=== PATIENT | male | born 1945 | race Caucasian/White ===

== ENCOUNTER 2018-08-15 08:39 | Day surgery (SDC) | payer MEDICARE, OTHER ==
--- NOTE | 2018-08-15 08:07 | HP ---
DATE OF SURGERY: 08/15/2018 HISTORY OF PRESENT ILLNESS: The patient is a 73 year-old who originally had some swelling, occasional bleeding of enlarged external hemorrhoids initially at the time. Last colonoscopy was eight or nine years ago. He had some bleeding. As he had improved he continued observation and wants re-evaluated. His external hemorrhoids are better. He is interested in considering internal hemorrhoid banding if indicated as well as colonoscopy at this time. PAST MEDICAL HISTORY: Renal disease, hypertension. PAST SURGICAL HISTORY: Cholecystectomy, PV catheter later removed. MEDICATIONS: He had been on Allopurinol for some gout, amiloride, amlodipine, atorvastatin, ergocalciferol, vitamin D2, Fenofibrate, fluconazole nasal spray, furosemide, hydrocortisone, Pramoxine cream, Klor-Con, metoprolol, multivitamins. ALLERGIES: PENICILLIN, SULFA. FAMILY HISTORY: Hypertension, heart disease. SOCIAL HISTORY: No smoking or alcohol abuse. REVIEW OF SYSTEMS: Twelve systems reviewed. No chest pain or palpitations other systems negative or noncontributory as above and per preadmission questionnaire. PHYSICAL EXAMINATION: GENERAL: No acute distress. HEENT: Sclerae nonicteric. NECK: No JVD. CHEST: Equal excursion, nonlabored breathing. CVS: Regular rate and rhythm. ABDOMEN: Soft. No peritoneal signs. EXTREMITIES: No significant edema. NEURO: Alert, oriented, moving extremities symmetrically. No gross motor deficits noted. RECTAL: His external hemorrhoids are improved. IMPRESSION: History of some rectal bleeding, history of some internal and external hemorrhoid flare. I feel he will benefit from colonoscopy for further evaluation, possible internal hemorrhoid banding depending on operative findings. Risks and benefits explained in detail including but not limited to bleeding or infection, risk of bowel injury or perforation possibly requiring open procedure, risk of missed or nondiagnosis or incomplete exam possibly requiring barium enema, other studies or procedures, general risk of bowel prep or sedation, postoperative risk of nausea or cramping but not limited to. Regarding the hemorrhoid if his internal hemorrhoids are prominent to warrant banding at the time. General risk of bleeding, infection, remote risk of deeper infection possibly requiring major procedure, possibility of progression of hemorrhoidal disease may require other therapies or treatments down the road. He understands and agrees to the planned procedure and will proceed with colonoscopy possible internal hemorrhoid banding as an outpatient.
[2018-08-15] MEDS ORDERED: DIPRIVAN 200 MG/20 ML IV ONE (08:40)
[2018-08-15] MEDS ORDERED: Ketamine HCl 50 MG/ML IJ ONE (08:40)
[2018-08-15] MEDS ORDERED: Lactated Ringers 1,000 ML IV ONE (08:52)
[2018-08-15] MEDS ORDERED: Lactated Ringers 1,000 ML IV SCH (09:00)
[2018-08-15] MEDS ORDERED: ULTRAM 50 MG PO ONE (11:18)
[2018-08-15 12:12] VITALS: BP 140/78; PULSE 57; O2SAT 97
--- NOTE | 2018-08-15 15:01 | OP ---
SURGERY DATE/TIME: 08/15/2018 1019 PREOPERATIVE DIAGNOSIS: Rectal bleeding. History of internal and external hemorrhoids. POSTOPERATIVE DIAGNOSES: 1) Proximal transverse colon polyp. 2) Small raised lesion versus inflammation area descending colon. 3) Diverticulosis. 4) Grade II to III internal and external hemorrhoids. 5) Fair bowel prep. PROCEDURES: 1) Colonoscopy to terminal ileum. 2) Retrograde ileoscopy. 3) Hot snare polypectomy 4 mm transverse colon polyp. 4) Hot biopsy removal of small raised lesion inflamed area descending colon. 5) Internal hemorrhoid banding x3 columns. SURGEON: Dr. Nba Young. ANESTHESIA: MAC. ESTIMATED BLOOD LOSS: Minimal. INDICATIONS: As noted above. Risks and benefits explained in detail but not limited to and consent obtained. DESCRIPTION OF PROCEDURE AND FINDINGS: The patient is taken to the operating room. MAC anesthesia induced. After official time out and no disagreement with planned procedure, digital rectal exam revealed internal and external hemorrhoids. Otherwise no large palpable masses. Video colonoscope inserted and passed up through the tortuous sigmoid, descending, ascending and transverse colon around to the cecum. The scope was able to be passed to terminal ileum. Retrograde ileoscopy performed and grossly unremarkable. The scope is slowly and carefully withdrawn. Prep overall fair. There was a little bit of liquidy stool that was suctioned clear. There was a 4 mm polyp in the proximal transverse colon hepatic flexure that was removed with hot snare polypectomy with brief bursts of cautery. Good hemostasis noted. Otherwise the scope was slowly and carefully withdrawn. He did have a few scattered diverticula throughout the colon. In the descending colon at about 45 to 50 cm was noted a small raised lesion versus hyperplastic lesion as well as another similar sized 2.5 mm little inflamed area whether just simple prep irritation or not, both of these areas removed with hot biopsy forceps with brief bursts of cautery keeping well away from the bowel wall. Good hemostasis noted. The scope was slowly and carefully withdrawn. Again, the scope slowly and carefully withdrawn. Again, he did have some mild diverticulosis. Pulled back into the rectum where there were internal and external hemorrhoids. The scope is withdrawn. Remaining in lateral position under MAC anesthesia. Half-lee retractor carefully inserted while he remained under sedation. It was felt that his grade II to III internal and external hemorrhoids warranted internal hemorrhoid banding. Starting first the left lateral. The top edge of the internal hemorrhoid suction band with good tuft of tissue was noted. This is again repeated in the right posterior position and then again a third column was banded in the right anterior position with good tuft of tissue in each location. The retractor removed. Good hemostasis noted. The patient tolerated the procedure well. There were no immediate complications. Findings discussed with the family out in the waiting area.
== END 2018-08-15 12:31 | disposition home or self-care (01) ==
LOC: SDC 08:39
PROVIDERS: ATTEND Surgery
DX: D12.3 Benign neoplasm of transverse colon (principal); K63.9 Disease of intestine, unspecified; K57.30 Diverticulosis of large intestine without perforation or abscess without bleeding; K64.1 Second degree hemorrhoids; K64.4 Residual hemorrhoidal skin tags
CPT/HCPCS: 88305; 99100; J2704; A9270-GY

== ENCOUNTER 2021-02-23 10:36 | Emergency (ER) | payer MEDICARE, OTHER ==
[2021-02-23 11:04] VITALS: BP 156/88; PULSE 63; O2SAT 100
--- NOTE | 2021-02-23 11:11 | ERPHSYRPT ---
- History of Present Illness Time Seen by Provider: 02/23/21 11:00 Source: patient Exam Limitations: no limitations Physician History: Tee is a 75-year-old male who started 5 days ago with pain in the left upper chest radiating around to the back very painful but no rash was present. Then the rash appeared on Wednesday. His diagnosed him with shingles she is correct Timing/Duration: day(s) (5) Quality: burning, painful Severity: moderate Location: torso Possible Causes: other (Mild had chickenpox) Associated Symptoms: blisters, rash Allergies/Adverse Reactions: Penicillins Allergy (Mild, Verified 08/15/18 09:00) Hives Sulfa (Sulfonamide Antibiotics) [Sulfa(Sulfonamide Antibiotics)] Allergy (Mild, Verified 08/15/18 09:00) Hives Home Medications: Amiloride/Hydrochlorothiazide [Amiloride HCl-Hctz 5-50 mg Tab] 1 each PO DAILY 01/30/12 [History] Metoprolol Tartrate [Lopressor] 100 mg PO DAILY 01/30/12 [History] Multivitamin [Multivitamins] 1 ea PO DAILY 01/30/12 [History] Potassium Chloride 20 Meq [Klor-Con 20 MEQ] 20 meq PO QID 01/30/12 [History] Allopurinol 300 mg [Zyloprim 300 mg] 300 mg PO DAILY 01/14/13 [History] Amlodipine Besylate [Norvasc] 2.5 mg PO DAILY 01/14/13 [History] Furosemide 40 mg [Lasix 40 MG] 40 mg PO BID 01/14/13 [History] Ergocalciferol (Vitamin D2) [Vitamin D2] 50,000 unit PO DAILY 01/16/13 [History] Fenofibrate 54 mg PO DAILY 08/09/18 [History] Hx Influenza Vaccination/Date Given: (2011) Hx Pneumococcal Vaccination/Date Given: Yes (within last 5years) - Review of Systems Constitutional: No Fever, No Chills Eyes: No Symptoms Ears, Nose, & Throat: No Symptoms Respiratory: No Cough, No Dyspnea Cardiac: No Chest Pain, No Edema, No Syncope Abdominal/Gastrointestinal: No Abdominal Pain, No Nausea, No Vomiting, No Diarrhea Genitourinary Symptoms: No Dysuria Musculoskeletal: No Back Pain, No Neck Pain Skin: Rash Neurological: No Dizziness, No Focal Weakness, No Sensory Changes Psychological: No Symptoms Endocrine: No Symptoms All Other Systems: Reviewed and Negative - Past Medical History Pertinent Past Medical History: Yes Neurological History: No Pertinent History ENT History: No Pertinent History Cardiac History: High Cholesterol, Hypertension Respiratory History: Sleep Apnea Endocrine Medical History: Hypothyroidism Musculoskeletal History: Arthritis GI Medical History: No Pertinent History, Gallbladder Disease History: Renal Disease Psycho-Social History: No Pertinent History Male Reproductive Disorders: No Pertinent History Other Medical History: on transplant list for kidney, [place] [address] - Past Surgical History Past Surgical History: Yes Neuro Surgical History: No Pertinent History Cardiac: Cardiac Catheterization Respiratory: No Pertinent History Gastrointestinal: Cholecystectomy Genitourinary: Other Musculoskeletal: No Pertinent History Male Surgical History: No Pertinent History Other Surgical History: peritoneal dialysis catheter - Social History Smoking Status: Never smoker Exposure to second hand smoke: No Drug Use: none Patient Lives Alone: No - Physical Exam General Appearance: mild distress, alert Eye Exam: PERRL/EOMI, eyes nml inspection Ears, Nose, Throat Exam: normal ENT inspection, pharynx normal, moist mucous membranes Neck Exam: normal inspection, non-tender, supple, full range of motion Respiratory Exam: normal breath sounds, lungs clear, No respiratory distress Cardiovascular Exam: regular rate/rhythm, normal heart sounds Gastrointestinal/Abdomen Exam: soft, mass, No tenderness Back Exam: normal inspection, normal range of motion, No CVA tenderness, No vertebral tenderness Extremity Exam: normal inspection, normal range of motion Neurologic Exam: alert, oriented x 3, cooperative, normal mood/affect, sensation nml, No motor deficits Skin Exam: normal color, warm, dry, rash (Vesicular rash on the left side of the upper chest radiating under the axilla and onto the upper back.) SpO2 Interpretation: normal O2 Delivery: Room Air - Course Nursing assessment & vital signs reviewed: Yes - Progress Progress: unchanged - Departure Departure Disposition: Home Clinical Impression: Herpes zoster Condition: Stable Critical Care Time: No Referrals: KELLIE ROTHMAN MD [Primary Care Provider] - Instructions: Shingles (DC) Prescriptions: Hydrocodone/Acetaminophen [Hydrocodone-Acetamin 5-325 mg] 1 tab PO Q6HPRN PRN 3 Days #12 tablet MDD 4 PRN Reason: Pain Prednisone 10 mg [Deltasone 10 mg] 10 mg PO TID 4 Days #12 tablet Valacyclovir HCl [Valtrex] 1,000 mg PO TID 7 Days #21 tablet
== END 2021-02-23 11:31 | disposition home or self-care (01) ==
LOC: ED 10:36
DX: B02.9 Zoster without complications (principal); Z79.899 Other long term (current) drug therapy; I10 Essential (primary) hypertension; E78.00 Pure hypercholesterolemia, unspecified; E03.9 Hypothyroidism, unspecified; G47.30 Sleep apnea, unspecified
CPT/HCPCS: 99282

== ENCOUNTER 2021-12-15 08:35 | Day surgery (SDC) | payer MEDICARE, OTHER ==
[2021-12-15] MEDS ORDERED: Lactated Ringers 1,000 ML IV ONE (08:43)
[2021-12-15] MEDS ORDERED: Lactated Ringers 1,000 ML IV SCH (09:00)
--- NOTE | 2021-12-15 09:10 | HP ---
DATE OF SURGERY: 12/15/2021 HISTORY OF PRESENT ILLNESS: The patient is a 76-year-old last colonoscopy three years ago and had some polyps. The patient is working on trying to get back on the kidney transplant list. He had some prostate cancer early stages, he said. He denies any bloody stools. No change in bowel movements. No pain. Given his history of polyps, he is in need of follow up screening colonoscopy. PAST MEDICAL HISTORY: Prostate cancer, hypertension. PAST SURGICAL HISTORY: Cholecystectomy in the past. Cardiac catheterization in the past. Peritoneal dialysis catheter in the past. MEDICATIONS: Multivitamin, Tricor, metoprolol, amiloride/hydrochlorothiazide, furosemide, vitamin D, allopurinol, potassium chloride. ALLERGIES: PENICILLN. SULFA. FAMILY HISTORY: Heart disease. SOCIAL HISTORY: He denies smoking or alcohol abuse. REVIEW OF SYSTEMS: Fourteen systems reviewed. No chest pain or palpitations. Other systems negative or noncontributory as above and per preadmission questionnaire. PHYSICAL EXAMINATION: GENERAL: No acute distress. HEENT: Sclerae nonicteric. NECK: No JVD. CHEST: Equal excursion, nonlabored breathing. CVS: Regular rate and rhythm. ABDOMEN: Soft. No peritoneal signs. EXTREMITIES: No significant edema. NEURO: Alert, oriented, moving extremities symmetrically. RECTAL: Deferred timed to endoscopy exam. PSYCH: Appropriate mood and affect. SKIN: Dry. IMPRESSION: History of polyps in need of follow up screening colonoscopy, I feel he is a candidate. He was shown the risk sheet, explained the procedure in detail including but not limited to bleeding or infection, risk of bowel injury or perforation possibly requiring open procedure, risk of missed or nondiagnosis or incomplete exam possibly requiring barium enema, other studies or procedures, general risk of anesthesia or sedation but not limited to, consent obtained. Will proceed with outpatient colonoscopy under MAC anesthesia.
[2021-12-15] MEDS ORDERED: DIPRIVAN 200 MG/20 ML IV ONE (10:33)
[2021-12-15 11:26] VITALS: BP 125/68; PULSE 55; O2SAT 97
--- NOTE | 2021-12-15 14:50 | OP ---
SURGERY DATE/TIME: 12/15/2021 1044 PREOPERATIVE DIAGNOSIS: Prior history of polyp, need follow up screening colonoscopy. POSTOPERATIVE DIAGNOSES: 1) ASA Class III. 2) Fair bowel prep. 3) Diverticulosis. 4) Small polyps ascending colon and sigmoid colon. PROCEDURES: 1) Colonoscopy to cecum. 2) Hot snare polypectomy ascending colon polyps x2. SURGEON: Dr. Nba Young. ANESTHESIA: MAC. ESTIMATED BLOOD LOSS: Minimal. INDICATIONS: As noted above. Risks and benefits explained in detail but not limited to and consent obtained. DESCRIPTION OF PROCEDURE AND FINDINGS: The patient is taken to the endoscopy room. MAC anesthesia induced. After official time out and no disagreement with planned procedure, digital rectal exam did not reveal any rectal masses. Video colonoscope inserted and passed up through the slightly tortuous sigmoid, descending, transverse and ascending colon. With the external pressure the scope was able to be passed to the cecum. Appendiceal orifice and valve well visualized and photo documented. Prep overall was fair. ASA Class III. After hot snare polypectomy of ascending colon polyp, the scope was slowly and carefully withdrawn. There were a few scattered diverticula. The scope passed around to the sigmoid colon. Two small early polyps versus hyperplastic lesions removed with hot biopsy forceps with brief bursts of cautery. Good hemostasis was noted. Withdrawal time was around 11 minutes. No signs of any large masses or obstructing lesions. He did have a fair bowel prep. He had some mild diverticulosis. The scope is withdrawn. There were no immediate complications. Findings discussed with the family out in the waiting area.
== END 2021-12-15 11:33 | disposition home or self-care (01) ==
LOC: SDC 08:35
PROVIDERS: ATTEND Surgery
DX: Z12.11 Encounter for screening for malignant neoplasm of colon (principal); Z09 Encounter for follow-up examination after completed treatment for conditions other than malignant neoplasm; D12.2 Benign neoplasm of ascending colon; D12.4 Benign neoplasm of descending colon; Z86.010 Personal history of colon polyps; K57.30 Diverticulosis of large intestine without perforation or abscess without bleeding
CPT/HCPCS: 99100; J2704

== ENCOUNTER 2025-04-12 15:42 | Emergency (ER) | payer MEDICARE, OTHER ==
[2025-04-12 15:48] VITALS: TEMP 98.9
--- NOTE | 2025-04-12 16:04 | ERPHSYRPT ---
- History of Present Illness Time Seen by Provider: 04/12/25 16:04 Source: patient, family Exam Limitations: no limitations Physician History: This is a 80-year-old white male patient who arrives by private vehicle accompanied by his spouse with approximately 1-1/2 weeks of worsening shortness of breath. His primary care provider is Dr. Arenas. His shank threader is Dr. Gibson and his warehousing technician is Dr. Mueller. Patient states that his shortness of breath has been worsening primarily in the mornings over the last 1-1/2 weeks. Throughout the day his symptoms improved but do not completely go away. He has noticed some associated "rattling" in his chest when he breathes. During this timeframe, he and his also have noticed increased swelling in his lower extremities he denies chest pain. He has had a mild cough. Within the last 2 weeks his has had bronchitis and she felt that this might be bronchitis. However symptoms were worsening. Patient and his spouse were on their way out of town and they stopped off at urgent care clinic in [facility] where he was found to have a systolic blood pressure of 220 mmHg and a room air oxygen saturation level 93%. He does not wear oxygen supplementation. Patient has history of CHF and is on Lasix, hypertension and does take metoprolol and hydralazine, hyperlipidemia, sleep apnea, arthritis and chronic renal disease without dialysis. In the emergency department here at [facility] we placed the patient on 2 L of oxygen via nasal cannula and his oxygen saturation level increased to 85% to 97%. He is in no apparent distress. Patient is not on nebulizer treatments at home Timing/Duration: week(s) (1.5) Severity of Dyspnea-Max: mild (To moderate) Severity of Dyspnea-Current: mild (To moderate) Possible Cause: frequent episodes Modifying Factors: Improves With: activity (Worsens), coughing (Mild) Associated Symptoms: cough, ankle swelling, No chest pain/discomfort Allergies/Adverse Reactions: Penicillins Allergy (Mild, Verified 12/15/21 08:50) Hives Sulfa (Sulfonamide Antibiotics) [Sulfa(Sulfonamide Antibiotics)] Allergy (Mild, Verified 12/15/21 08:50) Hives Home Medications: Metoprolol Tartrate [Lopressor] 100 mg PO BID 01/30/12 [History] Multivitamin [Multivitamins] 1 ea PO DAILY 01/30/12 [History] Potassium Chloride 20 Meq [Klor-Con 20 MEQ] 20 meq PO TID 01/30/12 [History] Allopurinol 300 mg [Zyloprim 300 mg] 300 mg PO DAILY 01/14/13 [History] Furosemide 40 mg [Lasix 40 MG] 20 mg PO BID 01/14/13 [History] Ergocalciferol (Vitamin D2) [Vitamin D2] 50,000 unit PO CLARIFY 01/16/13 [History] Fenofibrate 54 mg PO DAILY 08/09/18 [History] Atorvastatin Calcium [Lipitor 40Mg] 2 tab PO DAILY 12/15/21 [History] Hydralazine HCl 25 mg PO DAILY 04/12/25 [History] Hx Tetanus, Diphtheria Vaccination/Date Given: Yes Hx Influenza Vaccination/Date Given: (2011) Hx Pneumococcal Vaccination/Date Given: Yes (within last 5years) Travel Risk - International Travel Have you traveled outside of the country in past 3 weeks: No - Emerging Infectious Disease Are you exhibiting symptoms associated with any current EIDs: No - Review of Systems Constitutional: No Symptoms Eyes: No Symptoms Ears, Nose, & Throat: No Symptoms Respiratory: Cough, Dyspnea Cardiac: Edema (Bilateral feet and ankles), No Chest Pain Abdominal/Gastrointestinal: No Symptoms Genitourinary Symptoms: No Symptoms Musculoskeletal: No Symptoms Skin: No Symptoms Neurological: No Symptoms Psychological: No Symptoms Endocrine: No Symptoms Hematologic/Lymphatic: No Symptoms Immunological/Allergic: No Symptoms All Other Systems: Reviewed and Negative - Past Medical History Pertinent Past Medical History: Yes Neurological History: No Pertinent History ENT History: No Pertinent History Cardiac History: High Cholesterol, Hypertension Respiratory History: Sleep Apnea Musculoskeletal History: Arthritis GI Medical History: No Pertinent History, Gallbladder Disease History: Renal Disease Psycho-Social History: No Pertinent History Male Reproductive Disorders: No Pertinent History Other Medical History: Removed from transplant list due to prostate cancer. No dialysis - Past Surgical History Past Surgical History: Yes Neuro Surgical History: No Pertinent History Cardiac: Cardiac Catheterization Respiratory: No Pertinent History Gastrointestinal: Cholecystectomy Genitourinary: Other Musculoskeletal: No Pertinent History Male Surgical History: No Pertinent History Other Surgical History: peritoneal dialysis catheter removed years ago. - Social History Smoking Status: Never smoker Exposure to second hand smoke: No - Nursing Vital Signs Nursing Vital Signs: Initial Vital Signs Temperature 98.9 F 04/12/25 15:43 Pulse Rate 73 04/12/25 15:43 Respiratory Rate 22 04/12/25 15:43 Blood Pressure 200/118 04/12/25 15:43 O2 Sat by Pulse Oximetry 85 L 04/12/25 15:43 Pain Scale Pain Intensity 5 - Physical Exam General Appearance: no apparent distress, alert, obese Eye Exam: PERRL/EOMI, eyes nml inspection Ears, Nose, Throat Exam: hearing grossly normal, normal ENT inspection, normal pharynx Neck Exam: normal inspection, non-tender, supple, full range of motion Respiratory Exam: normal breath sounds, lungs clear, airway intact, No chest tenderness, No respiratory distress Abdominal/Gastrointestinal Exam: soft, normal bowel sounds, No tenderness Rectal Exam: not done Extremity Exam: non-tender, normal range of motion, no calf tenderness, pelvis stable, pedal edema (Bilateral) Neurologic Exam: alert, oriented x 3, cooperative, research hydraulic engineer II-XII nml as tested, normal mood/affect, nml cerebellar function, nml station & gait, sensation nml Skin Exam: normal color, warm, dry Lymphatic Exam: No adenopathy SpO2 Interpretation: hypoxic SpO2: 85 O2 Delivery: Room Air - Course Nursing assessment & vital signs reviewed: Yes EKG Interpreted by Me: RATE (73), Sinus Rhythm, NORMAL AXIS, NORMAL INTERVALS, NORMAL QRS, Other (QTc is 465. No acute ischemia on this twelve-lead EKG) Ordered Tests: Active Orders 24 hr Category Date Time Status Jewel Bearing Grinder STAT Care 04/12/25 16:25 Active EKG-ER Only STAT Care 04/12/25 16:24 Active IV Insertion STAT Care 04/12/25 16:24 Active Pulse Oximetry (ED) STAT Care 04/12/25 16:24 Active CHEST 1 VIEW (PORTABLE) Stat Exams 04/12/25 16:24 Taken BLOOD CULTURE Stat Lab 04/12/25 16:42 Received CBC W DIFF Stat Lab 04/12/25 16:30 Completed CMP Stat Lab 04/12/25 16:30 Completed Lactic Acid Stat Lab 04/12/25 16:25 Completed MAGNESIUM Stat Lab 04/12/25 16:30 Completed NT PRO BNPII Stat Lab 04/12/25 16:30 Completed PROTIME WITH INR Stat Lab 04/12/25 16:30 Completed TROPONIN Q4H Lab 04/12/25 16:46 Completed TROPONIN Q4H Lab 04/12/25 22:00 Ordered Medication Summary Discontinued Medications Generic Name Dose Route Start Last Admin Trade Name Gisselle PRN Reason Stop Dose Admin Hydrocodone Bitart/Acetaminophen 1 tab 04/12/25 21:09 Hydrocodone/Apap 5/325 1 Tab Tablet PO 04/12/25 21:10 STAT ONE Hydrocodone Bitart/Acetaminophen Confirm 04/12/25 21:12 Hydrocodone/Apap 5/325 1 Tab Tablet Administered 04/12/25 21:13 Dose 1 tab .ROUTE .STK-MED ONE Methylprednisolone Sodium 0 mg 04/12/25 16:06 04/12/25 16:09 Succinate 125 mg/ Sterile IV 04/12/25 16:07 Not Given Water 2 ml STAT ONE Diphenhydramine HCl 50 mg 04/12/25 16:06 04/12/25 16:09 Diphenhydramine Hcl 50 Mg/Ml Vial IV 04/12/25 16:07 Not Given STAT ONE Furosemide 40 mg 04/12/25 16:28 04/12/25 16:44 Furosemide 40 Mg/4 Ml Vial IV 04/12/25 16:29 40 mg STAT ONE Administration Furosemide Confirm 04/12/25 16:32 Furosemide 40 Mg/4 Ml Vial Administered 04/12/25 16:33 Dose 40 mg .ROUTE .STK-MED ONE Hydralazine HCl 10 mg 04/12/25 16:28 04/12/25 16:44 Hydralazine Hcl 20 Mg/Ml Vial IV 04/12/25 16:29 10 mg STAT ONE Administration Hydralazine HCl Confirm 04/12/25 16:30 Hydralazine Hcl 20 Mg/Ml Vial Administered 04/12/25 16:31 Dose 20 mg .ROUTE .STK-MED ONE Hydralazine HCl 10 mg 04/12/25 19:32 04/12/25 19:36 Hydralazine Hcl 20 Mg/Ml Vial IV 04/12/25 19:33 10 mg STAT ONE Administration Hydralazine HCl Confirm 04/12/25 19:35 Hydralazine Hcl 20 Mg/Ml Vial Administered 04/12/25 19:36 Dose 20 mg .ROUTE .STK-MED ONE Hydralazine HCl 10 mg 04/12/25 21:07 Hydralazine Hcl 20 Mg/Ml Vial IV 04/12/25 21:08 STAT ONE Hydralazine HCl Confirm 04/12/25 21:12 Hydralazine Hcl 20 Mg/Ml Vial Administered 04/12/25 21:13 Dose 20 mg .ROUTE .STK-MED ONE Labetalol HCl 10 mg 04/12/25 20:30 04/12/25 20:33 Labetalol Hcl 20 Mg/4 Ml Disp.Syringe IV 04/12/25 20:31 10 mg STAT ONE Administration Labetalol HCl Confirm 04/12/25 20:32 Labetalol Hcl 20 Mg/4 Ml Disp.Syringe Administered 04/12/25 20:33 Dose 20 mg IV .STK-MED ONE Lab/Rad Data: Laboratory Result Diagrams 04/12/25 16:30 04/12/25 16:30 Laboratory Results 04/12/25 04/12/25 04/12/25 Range/Units 16:46 16:30 16:30 WBC (4.23-9.07) x10^3/uL RBC (4.63-6.08) x10^6/uL Hgb (13.7-17.5) g/dL Hct (40.1-51.0) % MCV (79.0-92.2) fL MCH (25.7-32.2) pg MCHC (32.3-36.5) g/dL RDW (11.6-14.4) % Plt Count (163-337) x10^3/uL MPV (9.4-12.4) fL Gran % (34.0-67.9) % Immature Gran % (Auto) (0.001-0.429) % Nucleat RBC Rel Count (0.00-0.2) % Eos # (Auto) (0.04-0.54) x10^3/uL Immature Gran # (Auto) (0.001-0.031) x10^3u/L Absolute Lymphs (auto) (1.32-3.57) x10^3/uL Absolute Monos (auto) (0.30-0.82) x10^3/uL Absolute Nucleated RBC (0.00-0.012) x10^3u/L Lymphocytes % (21.8-53.1) % Monocytes % (5.3-12.2) % Eosinophils % (0.8-7.0) % Basophils % (0.2-1.2) % Absolute Granulocytes (1.78-5.38) x10^3/uL Basophils # (0.01-0.08) x10^3/uL PT 10.9 (9.4-12.5) SECONDS INR 0.97 (0.8-3.0) Sodium 145 (135-145) mmol/L Potassium 4.2 (3.5-5.1) mmol/L Chloride 112 H (98-107) mmol/L Carbon Dioxide 27 (22-30) mmol/L Anion Gap 9.9 (5-15) MEQ/L BUN 32 H (9-20) mg/dL Creatinine 3.12 H (0.66-1.25) mg/dL Estimated GFR 19.7 ML/MIN Glucose 125 H (74-106) mg/dL Lactic Acid (0.4-2.0) Calcium 9.1 (8.4-10.2) mg/dL Magnesium 2.0 (1.6-2.3) mg/dL Total Bilirubin 1.80 H (0.2-1.3) mg/dL AST 39 (17-59) U/L ALT 24 (0-50) U/L Alkaline Phosphatase 99 (38-126) U/L Troponin I 0.048 H* (0.000-0.033) ng/mL NT-Pro-B Natriuret Pep 8170 (<300) pg/mL Serum Total Protein 6.4 (6.3-8.2) g/dL Albumin 3.5 (3.5-5.0) g/dL 04/12/25 04/12/25 Range/Units 16:30 16:25 WBC 6.5 (4.23-9.07) x10^3/uL RBC 3.44 L (4.63-6.08) x10^6/uL Hgb 10.7 L (13.7-17.5) g/dL Hct 33.3 L (40.1-51.0) % MCV 96.8 H (79.0-92.2) fL MCH 31.1 (25.7-32.2) pg MCHC 32.1 L (32.3-36.5) g/dL RDW 15.3 H (11.6-14.4) % Plt Count 183 (163-337) x10^3/uL MPV 11.9 (9.4-12.4) fL Gran % 67.3 (34.0-67.9) % Immature Gran % (Auto) 0.3 (0.001-0.429) % Nucleat RBC Rel Count 0.0 (0.00-0.2) % Eos # (Auto) 0.39 (0.04-0.54) x10^3/uL Immature Gran # (Auto) 0.02 (0.001-0.031) x10^3u/L Absolute Lymphs (auto) 1.09 L (1.32-3.57) x10^3/uL Absolute Monos (auto) 0.59 (0.30-0.82) x10^3/uL Absolute Nucleated RBC 0.00 (0.00-0.012) x10^3u/L Lymphocytes % 16.7 L (21.8-53.1) % Monocytes % 9.1 (5.3-12.2) % Eosinophils % 6.0 (0.8-7.0) % Basophils % 0.6 (0.2-1.2) % Absolute Granulocytes 4.38 (1.78-5.38) x10^3/uL Basophils # 0.04 (0.01-0.08) x10^3/uL PT (9.4-12.5) SECONDS INR (0.8-3.0) Sodium (135-145) mmol/L Potassium (3.5-5.1) mmol/L Chloride (98-107) mmol/L Carbon Dioxide (22-30) mmol/L Anion Gap (5-15) MEQ/L BUN (9-20) mg/dL Creatinine (0.66-1.25) mg/dL Estimated GFR ML/MIN Glucose (74-106) mg/dL Lactic Acid 0.9 (0.4-2.0) Calcium (8.4-10.2) mg/dL Magnesium (1.6-2.3) mg/dL Total Bilirubin (0.2-1.3) mg/dL AST (17-59) U/L ALT (0-50) U/L Alkaline Phosphatase (38-126) U/L Troponin I (0.000-0.033) ng/mL NT-Pro-B Natriuret Pep (<300) pg/mL Serum Total Protein (6.3-8.2) g/dL Albumin (3.5-5.0) g/dL - Progress Progress: improved, re-examined Air Movement: fair Progress Note: 04/12/25 16:44 My medical decision making and the assignment of at least moderate complexity and possible high complexity depending on workup results and further testing that may be necessary. The assignment of moderate complexity and possible high complexity also is based on review of the patient's past medical history, reviewed patient's medication list, reviewed the patient drug allergy list, history present notes and physical findings on examination. The workup in this patient clues placement of intravenous line, twelve-lead EKG, troponin level, BNP level, magnesium level, CBC, CMP, RT evaluation, nebulizer treatment, viral swabs, chest x-ray. Differential diagnosis includes but is not limited to viral illness, pulmonary infiltrate, COPD exacerbation, CHF exacerbation, arrhythmia, myocardial infarction, asymptomatic hypertension 04/12/25 19:09 I interpreted the patient's laboratory data results. The patient has findings consistent with anemia, CHF exacerbation, slightly elevated troponin, chronic renal disease. I interpreted the patient's chest x-ray preliminary report. It appears as though the patient has bibasilar pleural effusion, cardiomegaly and possible right basilar infiltrate versus fluid I reviewed the radiographic studies, EKG and laboratory data results with the patient and his spouse. Patient continues to have no chest pain. He did require oxygen. My recommendation is to have the patient placed in the hospital setting. They prefer to try to stay here at our facility. 04/12/25 19:[address] Clark, the telehospitalist on at this time and I reviewed the patient history, presenting complaint, physical findings on examination and workup results. Dr. Berumen was concerned that the patient has multiple medical issues that are somewhat acute. He has 1 kidney he has history of congestive heart failure he has a systolic blood pressure on presentation of greater than 200 mmHg. He prefers that we transferred this patient to patient's preference, if he cannot be placed in our facility, [facility]. I will contact [facility]. 04/12/25 21:[address] Diego, the hospitalist on at [facility] after I spoke with the shank threader Dr. Mireles, who said he would consult after admission by Dr. Diego. I reviewed with both the shank threader and Dr. Diego the patient history, presenting complaint, physical findings on examination and the workup results. Dr. Diego agrees to accept this patient for transfer and the shank threader will consult. Blood Culture(s) Obtained: Yes Antibiotics given: Yes Counseled pt/family regarding: lab results, diagnosis, rad results Medical Desision Making - Independent Historian Additional History obtained from: Spouse - Diagnostic Testing Diagnostic test were ordered, analyzed, and reviewed by me: Yes Radiological Interpretation: Interpreted by me, Reviewed by me, Teleradiologist Report - Risk of complications The pt has a high risk of morbidity or mortality based on: Decision regarding hospitilization or escalation of hosp level of care - Departure Departure Disposition: Transfer Clinical Impression: Hypoxia, Right pulmonary infiltrate on CXR, Bilateral pleural effusion, Chronic renal failure, Congestive heart failure, Elevated troponin, Asymptomatic hypertension Condition: Fair Critical Care Time: Yes Critical Care Time(excluding separately billable procedures): Critical 30-74 mins (55) Referrals: KELLIE ARENAS MD [Primary Care Provider, [facility]] - Follow up/PCP as directed Instructions: Heart Failure
[2025-04-12] MEDS: solu-MEDROL 125 MG, Sterile H2O 10 ml 2 ML IV ONE (16:09)
[2025-04-12] MEDS: BENADRYL 50 MG/ML IV ONE (16:09)
[2025-04-12] MEDS ORDERED: APRESOLINE 20 MG/ML INJ ONE ×3 (16:30→21:12)
[2025-04-12] MEDS ORDERED: Lasix 40 MG/4 ML ONE (16:32)
[2025-04-12] MEDS: APRESOLINE 20 MG/ML INJ IV ONE ×3 (16:44→21:20)
[2025-04-12] MEDS: Lasix 40 MG/4 ML IV ONE (16:44)
[2025-04-12 16:47] LABS: BASOPHIL % 0.6 % (0.2-1.2); Basophil (Absolute #) 0.04 x10^3/uL (0.01-0.08); Eosinophil (Absolute #) 0.39 x10^3/uL (0.04-0.54); Hematocrit 33.3 % (40.1-51.0); Hemoglobin 10.7 g/dL (13.7-17.5); IMMATURE GRAN # 0.02 x10^3u/L (0.001-0.031); IMMATURE GRAN % 0.3 % (0.001-0.429); Lymphocyte (Absolute #) 1.09 x10^3/uL (1.32-3.57); Mean Corpuscular Hemoglobin 31.1 pg (25.7-32.2); Mean Corpuscular Hgb Concent. 32.1 g/dL (32.3-36.5); Monocyte (Absolute #) 0.59 x10^3/uL (0.30-0.82); NUCLEATED RBC # 0.00 x10^3u/L (0.00-0.012); NUCLEATED RBC % 0.0 % (0.00-0.2); Platelet Count 183 x10^3/uL (163-337); Red Blood Count 3.44 x10^6/uL (4.63-6.08); White Blood Count 6.5 x10^3/uL (4.23-9.07)
[2025-04-12 17:02] LABS: INR 0.97 (0.8-3.0); PROTIME 10.9 SECONDS (9.4-12.5)
[2025-04-12 17:10] LABS: Calcium 9.1 mg/dL (8.4-10.2); Carbon Dioxide 27.0 mmol/L (22-30); Creatinine 1 3.12 mg/dL (0.66-1.25); EST GLOMERULAR FILTRATION RATE 19.7 ML/MIN; Glucose 125.0 mg/dL (74-106); NT PRO BNPII 8170.0 pg/mL (<300); Potassium 4.2 mmol/L (3.5-5.1); SGOT/AST 39.0 U/L (17-59); SGPT/ALT 24.0 U/L (0-50); Total Protein 6.4 g/dL (6.3-8.2)
[2025-04-12] MEDS ORDERED: TRANDATE 20 MG/4 ML SYRINGE IV ONE (20:32)
[2025-04-12] MEDS: TRANDATE 20 MG/4 ML SYRINGE IV ONE (20:33)
[2025-04-12] MEDS ORDERED: NORCO 5/325 MG ONE (21:12)
[2025-04-12] MEDS: NORCO 5/325 MG PO ONE (21:19)
[2025-04-13] MEDS ORDERED: TYLENOL 325 MG ONE (03:38)
[2025-04-13] MEDS ORDERED: APRESOLINE 20 MG/ML INJ ONE (03:38)
[2025-04-13] MEDS: TYLENOL 325 MG PO STA (03:40)
[2025-04-13] MEDS: APRESOLINE 20 MG/ML INJ IV ONE (03:40)
[2025-04-13] MEDS: APRESOLINE 20 MG/ML INJ IV STA (03:44)
[2025-04-13 04:02] VITALS: BP 177/85; PULSE 68; RESP 18; O2SAT 96
--- NOTE | 2025-04-13 08:46 | XRAY ---
Indication: Wheezing. Short of breath. Comparison: None Portable chest demonstrates cardiomegaly, pulmonary edema, and small bibasilar effusions [id number] favoring cardiac decompensation/CHF. Mild bibasilar infiltrates versus atelectasis, possible superimposed pneumonia. Bony thorax intact.
== END 2025-04-13 04:00 | disposition short-term general hospital (02) ==
LOC: ED 15:42
DX: R09.02 Hypoxemia (principal); R06.02 Shortness of breath; R60.0 Localized edema; D64.9 Anemia, unspecified; R77.8 Other specified abnormalities of plasma proteins; I11.0 Hypertensive heart disease with heart failure; I50.9 Heart failure, unspecified; J90 Pleural effusion, not elsewhere classified